=== PATIENT | male | born 1990 | race Two or more races ===

== ENCOUNTER 2020-12-31 03:34 | Emergency (ER) | payer MEDICAID ==
[~2020-12-31] VITALS: Ht 180.3 cm; Wt 90.7 kg
[2020-12-31] MEDS ORDERED: IV NORMAL SALINE 1000 ML BAG IV ONE (04:00)
[2020-12-31] MEDS ORDERED: ONDANSETRON 4 MG/2 ML VIAL IV ONE (04:00)
[2020-12-31] MEDS ORDERED: HYDROMORPHONE 1 MG/1 ML DISP.SYRIN IV ONE (04:00)
[2020-12-31 04:46] LABS: CARBON DIOXIDE 25 mmol/L (21-32); CHLORIDE 109 mmol/L (98-107); CREATININE 1.1 mg/dL (0.6-1.3); GLUCOSE 113 mg/dL (74-106); POTASSIUM 3.7 mmol/L (3.5-5.1); UREA NITROGEN, BLOOD 14 mg/dL (7-18)
[2020-12-31] MEDS ORDERED: IOHEXOL 300MG/ML 50 ML VIAL ONE ×2 (04:51→04:55)
[2020-12-31 04:52] LABS: ALANINE AMINOTRANSFERASE 39 U/L (16-63); ALKALINE PHOSPHATASE 122 U/L (50-136); ASPARTATE AMINOTRANSFERASE 33 U/L (15-37); BILIRUBIN,TOTAL 0.2 mg/dL (0.2-1.0); HEMATOCRIT 40.5 % (36.7-47.1); MEAN CORPUSCULAR HEMOGLOBIN 31.7 uug (23.8-33.4); MEAN CORPUSCULAR VOLUME 91.8 fL (73.0-96.2); PLATELET COUNT (AUTO) 167 K/uL (152-348); TOTAL PROTEIN, SERUM 7.5 g/dL (6.4-8.2)
[2020-12-31 04:55] LABS: *BILIRUBIN,URIN NEGATIVE (NEGATIVE); *BLOOD, URINE 1+ (NEGATIVE); *CLARITY,URINE CLEAR (CLEAR); *KETONES,URINE NEGATIVE (NEGATIVE); *UROBILINOGEN,URINE 0.2 E.U./dl (NORMAL); LEUKOCYTE ESTERASE ,URINE NEGATIVE (NEGATIVE); NITRITE, URINE NEGATIVE (NEGATIVE); PH,URINE 5.5 (5.0-8.0); UGLUCOSE NEGATIVE (NEGATIVE)
[2020-12-31 04:58] LABS: *COLOR,URINE STRAW (YELLOW)
[2020-12-31 04:58] LABS: BILIRUBIN,DIRECT < 0.1 mg/dL (0.0-0.2)
[2020-12-31] MEDS ORDERED: ONDANSETRON 4 MG/2 ML VIAL ONE (05:05)
[2020-12-31] MEDS ORDERED: HYDROMORPHONE 1 MG/1 ML DISP.SYRIN ONE (05:05)
[2020-12-31 05:11] LABS: BACTERIA,URINE NONE SEEN /HPF (NONE SEEN); RBC,URINE 0-3 /HPF (0-3); SQUAMOUS EPITHELIAL CELL,UR FEW /HPF (NONE SEEN); WBC,URINE NONE SEEN /HPF (0-3)
[2020-12-31 05:12] LABS: *AMPHETAMINE, URINE NEGATIVE (NEGATIVE); *CANNABINOID, URINE NEGATIVE (NEGATIVE); *COCCAINE, URINE NEGATIVE (NEGATIVE); *OPIATE, URINE NEGATIVE (NEGATIVE); *PHENCYCLIDINE SCREEN,URINE NEGATIVE (NEGATIVE)
--- NOTE | 2020-12-31 05:54 | NUR ---
IV 1L NS bolus started at approx 0500 and completed at approx 0550
[2020-12-31] MEDS ORDERED: IBUP-1955 PO (07:58)
[2020-12-31] MEDS ORDERED: IBUPROFEN 600 MG TABLET PO ONE (08:15)
[2020-12-31] MEDS ORDERED: IBUPROFEN 600 MG TABLET ONE (08:30)
--- NOTE | 2020-12-31 08:44 | NUR ---
[place] of care ,awake ,alert, oriented to time place person, ED MD bedside patient to be discharged to home Left Lower Chest wall pain 6/10,slight redness , cold compress applied. Medicated for comfort with Motrin,tolerated fluids,work note given,reviewed discharge instructions patient verbalized instructions copys reports, RX belongings given.
[2020-12-31 08:50] VITALS: BP 110/45
--- NOTE | 2020-12-31 08:51 | NUR ---
08:30 #20 angio SL DC'ed cath intack,dry dressing x 1clean intack.
== END 2020-12-31 08:30 | disposition home or self-care (01) ==
LOC: ER 03:36
DX: Z04.1 Encounter for examination and observation following transport accident (principal); R07.89 Other chest pain; R10.9 Unspecified abdominal pain; D35.02 Benign neoplasm of left adrenal gland; R93.2 Abnormal findings on diagnostic imaging of liver and biliary tract; F10.129 Alcohol abuse with intoxication, unspecified; Y90.7 Blood alcohol level of 200-239 mg/100 ml; I45.10 Unspecified right bundle-branch block
CPT/HCPCS: 36415; 71260; 74177; 80048; 80076; 80307; 80320; 81001; 84484; 85025; 85730; 93005; 96361; 96374; 96375; 99285; J1170; J2405; Q9967 ×2; 70030-TC; A4663; G0480